=== PATIENT | female | born 1990 | race Two or more races ===

== ENCOUNTER 2017-07-03 19:23 | Emergency (ER) | payer SELFPAY ==
[2017-07-03 19:45] VITALS: BP 123/78
--- NOTE | 2017-07-03 21:28 | RADIOLOGY REPORT (SQ) ---
EXAM DESCRIPTION: HIP RIGHT AP/LATERAL COMPLETED DATE/TIME: 07/03/2017 9:20 pm REASON FOR STUDY: pain COMPARISON: None. NUMBER OF VIEWS: Two views. TECHNIQUE: AP pelvis and additional frog-leg view of the right hip. LIMITATIONS: None. FINDINGS: MINERALIZATION: Normal. RIGHT HIP: No fracture or dislocation. No worrisome bone lesions. LEFT HIP: No fracture or dislocation. No worrisome bone lesions. PUBIS AND ISCHIUM: No fracture. PELVIS: No fracture. SACRUM: No fracture or dislocation. No worrisome bone lesions. LOWER LUMBAR SPINE: No fracture or dislocation. No worrisome bone lesions. No significant disc disea se. SOFT TISSUES: Calcifications/ossification adjacent to the right superior acetabulum. OTHER: No other significant finding. IMPRESSION: NO RADIOGRAPHIC EVIDENCE OF ACUTE INJURY. CALCIFICATIONS/OSSIFICATION ADJACENT TO THE R IGHT SUPERIOR ACETABULUM OF THE REPRESENTS CHRONIC AVULSION TYPE INJURY OR CALCIFIC TENDINOSIS. TECHNICAL DOCUMENTATION: JOB ID: [id number] [employer]- All Rights Reserved
--- NOTE | 2017-07-03 21:55 | ER Document Report ---
HPI - HPI Pain Level: 5 Context: Patient is a 26-year-old female presents emergency department with chief complaint of right hip pain. Patient states that she started working out at the gym recently and felt like she pulled a muscle on Thursday. She states that she continued to workout throughout the week except yesterday with more pain in her right hip. She admits to pain starting in her right hip radiating down across her right thigh. States that she has not taken anything for her symptoms. Patient states that it does hurt to walk but she is able to bear weight and ambulate without assistance otherwise healthy female - NEURO Neurology: DENIES: Headache, Weakness, Vision blurred, Dizzinesss / Vertigo - MUSCULOSKELETAL Musculoskeletal: REPORTS: Extremity pain - r thigh, no trauma Past Medical History - Social History Smoking Status: Never Smoker Family History: Reviewed & Not Pertinent Patient has suicidal ideation: No Patient has homicidal ideation: No Renal/ Medical History: Denies: Hx Peritoneal Dialysis Vertical Provider Document - CONSTITUTIONAL Agree With Documented VS: Yes Notes: PHYSICAL EXAM GENERAL: Alert, interacts well. EXTREMITIES: Pelvis stable, legs equal length right hip full range of motion pain with hip flexion. Knee nontender full range of motion no edema, radial and dorsalis pedis pulses 2/4 bilaterally. No cyanosis. NEUROLOGICAL: Alert and oriented x4. Normal speech. PSYCH: Normal affect, normal mood. SKIN: Warm, dry, normal turgor. No rashes or lesions noted. - INFECTION CONTROL TRAVEL OUTSIDE OF THE [place] IN LAST 30 DAYS: No - RESPIRATORY O2 Sat by Pulse Oximetry: 99 Course - Re-evaluation Re-evalutation: 07/03/17 2100 Patient is a 26-year-old female is hemodynamically stable, no acute distress and afebrile. Gait stable. Patient able to ambulate without assistance. No evidence of a septic joint, gout flare, dislocation, or fracture on exam and imaging. Vitals wnl. At this time, I do not see an indication for labs or further imaging. Will discharge with conservative measures, declining crutches, return precautions, and follow-up recommendations. - Vital Signs Vital signs: Temp Pulse Resp BP Pulse Ox 98.8 F 93 18 123/78 99 07/03/17 19:43 07/03/17 19:43 07/03/17 19:43 07/03/17 19:43 07/03/17 19:43 - Diagnostic Test Radiology reviewed: Image reviewed, Reports reviewed Discharge - Discharge Clinical Impression: Hip pain Qualifiers: Laterality: right Qualified Code(s): M25.551 - Pain in right hip Condition: Good Disposition: HOME, SELF-CARE Instructions: Tendonitis ([facility]) Additional Instructions: You have symptoms consistent with tendonitis in you hip. Please allow for this to rest over the next 1 week to week and a half. You can take Motrin and Tylenol as needed for pain.
== END 2017-07-03 22:01 | disposition home or self-care (01) ==
LOC: ER 19:23
DX: M25.551 Pain in right hip (principal)
CPT/HCPCS: 81025; 99284